=== PATIENT | male | born 1990 | race Caucasian/White ===

== ENCOUNTER 2019-07-07 10:46 | Emergency (ER) | payer OTHER ==
[~2019-07-07] VITALS: Ht 182.9 cm; Wt 86.2 kg
== END 2019-07-07 13:30 | disposition home or self-care (01) ==
LOC: ED 10:46
PROC: 2W3EX1Z Immobilization of Right Hand using Splint (ICD-10-PCS; principal; 2019-07-07)
DX: S62.306A Unspecified fracture of fifth metacarpal bone, right hand, initial encounter for closed fracture (principal); F90.9 Attention-deficit hyperactivity disorder, unspecified type; X58.XXXA Exposure to other specified factors, initial encounter
CPT/HCPCS: 29125; 73130; 99283-25

== ENCOUNTER 2020-11-21 11:57 | Emergency (ER) | payer OTHER ==
[~2020-11-21] VITALS: Ht 182.9 cm; Wt 77.1 kg
== END 2020-11-21 15:21 | disposition home or self-care (01) ==
LOC: ED 11:57
DX: E86.0 Dehydration (principal); R53.1 Weakness; F17.200 Nicotine dependence, unspecified, uncomplicated
CPT/HCPCS: 80053; 96374; 99284-25; J2405; J7030

== ENCOUNTER 2020-12-13 18:40 | Emergency (ER) | payer OTHER ==
[~2020-12-13] VITALS: Ht 182.9 cm; Wt 77.1 kg
--- OUTSIDE RECORDS SUMMARY | 2020-12-13 18:48 | XMS ---
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 [place] - 2 Visits in 30 Days CARE PROVIDERS There are no care providers on record at this time. Sumanth has no Care Guidelines for this patient. [place] VISIT COUNT (12 MO.) 1 [facility] TOTAL 3 NOTE: Visits indicate total known visits. ED/[facility] VISIT TRACKING (12 MO.) [facility] COMPLAINT: - HEAD LACERATION, SLURRING WORDS 11/21/2020 11:58 ANICETO Solano [place] TYPE: Emergency COMPLAINT: - DEHYDRATED, FATIGUE, BODY ACHES DIAGNOSES: - Weakness - Dehydration - Nicotine dependence, unspecified, uncomplicated 05/03/2020 08:38 Jessa HUMPHREYS TYPE: Emergency COMPLAINT: - CHEST PAIN INPATIENT VISIT TRACKING (12 MO.) No inpatient visits to display in this time frame [email or web address]
== END 2020-12-13 21:52 | disposition home or self-care (01) ==
LOC: ED 18:40
PROC: 0HQ0XZZ Repair Scalp Skin, External Approach (ICD-10-PCS; principal; 2020-12-13)
DX: S06.0X0A Concussion without loss of consciousness, initial encounter (principal); S01.01XA Laceration without foreign body of scalp, initial encounter; Z23 Encounter for immunization; V00.131A Fall from skateboard, initial encounter; F17.200 Nicotine dependence, unspecified, uncomplicated
CPT/HCPCS: 12002; 70450; 90471; 90715; 99283-25; G0480